=== PATIENT | male | born 1960 | race Caucasian/White ===

== ENCOUNTER 2016-09-11 05:11 | Emergency (ER) | payer OTHER ==
[~2016-09-11] VITALS: Ht 182.9 cm; Wt 97.5 kg
[2016-09-11] MEDS ORDERED: LIDOCAINE 1%/EPI 1:100,000 20 ML VIAL. IJ ONE (06:00)
[2016-09-11 07:22] VITALS: BP 130/71
--- NOTE | 2016-09-11 08:19 | ED.ADGEN ---
Past Medical History Past Medical History: Liver Disease Additional Past Medical Histor: PARACENTESIS Past Surgical History: No Surgical History Alcohol Use: None Additional Information: QUIT ALCOHOL USE Drug Use: None Adult General Chief Complaint Chief Complaint: SKIN PROBLEM HPI HPI Patient is a 56 year old and, history of hepatitis C, with cirrhosis, who received a paracentesis of the abdomen at 4 days ago, who presents to the emergency department with complaint of bleeding from his right cheek. States that he scratched "some dry skin", but 3 hours ago, and noted bleeding since that time that has been persistent. He denies any other injuries or complaints. No lightheadedness or dizziness, chest pain or shortness breath, nausea or vomiting. Patient with gauze applied to the cheek. He states that there was a significant amount of bleeding that has occurred over the past 3 hours. Review of Systems Review of Systems Constitutional: Denies fever or chills. [] Eyes: Denies change in visual acuity. [] HENT: Denies nasal congestion or sore throat. [] Respiratory: Denies cough or shortness of breath. [] Cardiovascular: Denies chest pain or edema. [] GI: Denies abdominal pain, nausea, vomiting, bloody stools or diarrhea. [] : Denies dysuria. [] Musculoskeletal: Denies back pain or joint pain. [] Bleeding from the right cheek. Integument: Denies rash. [] Neurologic: Denies headache, focal weakness or sensory changes. [] Endocrine: Denies polyuria or polydipsia. [] Lymphatic: Denies swollen glands. [] Psychiatric: Denies depression or anxiety. [] Current Medications Current Medications Current Medications Medications (Trade) Dose Ordered Sig/Sallie Start Time Stop Time Status Last Admin Dose Admin Lidocaine/ Epinephrine (Xylocaine 1%-Epi 1:100,000) 20 ml 1X ONCE 09/11/16 06:00 09/11/16 06:01 DC 09/11/16 06:00 20 ML Allergies Allergies Allergies Coded Allergies Type Severity Reaction Last Updated Verified No Known Drug Allergies 09/11/16 No Physical Exam Physical Exam Constitutional: Well developed, well nourished, no acute distress, patient is jaundiced with scleral icterus. [] HENT: Normocephalic, patient noted to have active bleeding, from a single arteriole located on the upper aspect of his right cheek, with steady bleeding. Telangiectasias noted on the skin of the face and abdomen, no other areas of bleeding or other abnormalities identified, bilateral external ears normal, oropharynx moist, no oral exudates, nose normal. [] Eyes: PERRLA, EOMI, conjunctiva anicteric, no discharge. [] Neck: Normal range of motion, no tenderness, supple, no stridor. [] Cardiovascular:Heart rate regular rhythm, no murmur, S1, S2, rubs or gallops. Soft heart sounds. [] Lungs & Thorax: Bilateral breath sounds clear to auscultation , no wheezing, rhonchi, rales. [] Abdomen: Bowel sounds normal, soft, no rebound, rigidity, no guarding, enlarged liver noted, no tenderness, no masses, no pulsatile masses. [] Skin: Warm, dry, no erythema, no rash. Jaundiced. Back: No tenderness, no CVA tenderness. Patient with a 4 cm x 2 cm sebaceous cyst located on his left upper back, which she states isn't present for "months ", if not longer. Patient has had similar strain previously. There is mild irritation of the skin, from contact the patient's close, but no evidence of induration abscess formation. Nontender. [] Extremities: No tenderness, no cyanosis, no clubbing, ROM intact, no edema. [] Neurologic: Alert and oriented X 3, normal motor function, normal sensory function, no focal deficits noted. [] Psychologic: Affect normal, judgement normal, mood normal. [] Current Patient Data Vital Signs Vital Signs Date Time Temp Pulse Resp B/P Pulse Ox O2 Delivery O2 Flow Rate FiO2 09/11/16 07:22 98 18 130/71 99 Room Air 09/11/16 05:15 97.6 97.6 Lab Values Laboratory Tests Test 09/11/16 06:15 POC Hemoglobin 10.9g/dL (14-18) L POC Hematocrit 32% (37-52) L POC Sodium 130mmol/L (135-145) L POC Potassium 4.0mmol/L (3.5-5.0) POC Chloride 94mmol/L (98-110) L POC Total CO2 25mmol/L (23-32) Anion Gap 16mmol/L (6-14) H POC Blood Urea Nitrogen 13mg/dL (8-26) POC Creatinine 1.1mg/dL (0.5-1.4) Glucose Level 108mg/dL (70-99) H POC Ionized Calcium (Citlalli) 1.08mmol/L (1.13-1.32) L Laboratory Tests 09/11/16 06:15 EKG EKG Not indicated. [] Radiology/Procedures Radiology/Procedures Not indicated. [] Course & Med Decision Making Course & Med Decision Making Pertinent Labs and Imaging studies reviewed. (See chart for details) Patient with isolated bleeding from a single arterial noted on the right upper cheek, which is steady in nature. Has been persistent for 3 hours. No other areas of bleeding, bruising, or other concerns. Pressure was applied after injection of 1% lidocaine with epinephrine, after direct pressure from the sides resulted in cessation of the bleeding, which would recur as soon as pressure was removed. No indications for cautery based on the size and area on the face, with pressure applied, patient had several coats of skin glue applied , with resolution of bleeding once hardened. Patient observed in the emergency department for additional 30 minutes without any recurrence of bleeding. Due to persistence of bleeding, hemoglobin was obtained in the ED, which resulted at 10.9. Patient's heart rate is now in the 80s, blood pressure 130/71, he denies any other complaints, ambulating with difficulty in the ED. Nonadherent dressing place and face, patient started not to scratch her of the area, not to get it wet for at least 24 hours. We did discuss concerning symptoms that prompt return. Patient also noted have a large sebaceous cyst in his back with some irritation due to size. Antibiotic ointment, with dressing, no indication for oral antibiotics. No evidence of infection or induration. Patient instructed to follow-up with his surgeon at for removal of the cyst, to return to the ED if any concerning symptoms develop. Patient voiced understanding and agreement with plan as stated, discharged home in stable condition with plan as above. Dragon Disclaimer Dragon Disclaimer This electronic medical record was generated, in whole or in part, using a voice recognition dictation system. Departure Impression: Primary Impression: Telangiectasia Additional Impression: Facial laceration Disposition: HOME, SELF-CARE Condition: IMPROVED Problem Qualifiers Additional Impression: Facial laceration Encounter type: initial encounter Qualified Code: S01.81XA - Laceration without foreign body of other part of head, initial encounter DREA GARCIA DO Sep 11, 2016 08:19
== END 2016-09-11 07:27 | disposition home or self-care (01) ==
LOC: ER 05:11
DX: S01.411A Laceration without foreign body of right cheek and temporomandibular area, initial encounter (principal); I78.1 Nevus, non-neoplastic; L72.8 Other follicular cysts of the skin and subcutaneous tissue; Z86.19 Personal history of other infectious and parasitic diseases; X58.XXXA Exposure to other specified factors, initial encounter; Y93.89 Activity, other specified; Y99.8 Other external cause status; Y92.89 Other specified places as the place of occurrence of the external cause
CPT/HCPCS: 12015; 80047; 99283; J3490

== ENCOUNTER 2016-09-17 11:57 | Inpatient (IN) | payer MEDICARE, OTHER ==
[~2016-09-17] VITALS: Ht 188 cm; Wt 86.6 kg
[2016-09-17] VITALS (12 sets, daily range): BP systolic 114–162; BP diastolic 64–87
--- NOTE | 2016-09-17 12:24 | ED.ADGEN ---
Past Medical History Past Medical History: Liver Disease Additional Past Medical Histor: PARACENTESIS Past Surgical History: No Surgical History Alcohol Use: None Drug Use: None Adult General Chief Complaint Chief Complaint: ALTERED MENTAL STATUS HPI HPI Patient is a 56 year old man, history of alcohol abuse, with liver disease, who presents emergency department via EMS with report of altered mental status. Per report of the patient's and EMS, patient was noted to be lying on the couch today by the patient's , and she was unable to rouse him. She states the patient stopped drinking about a month ago. Denies any seizure activity, denies any possibility of injuries. Family is not present to give additional history. Patient with an O2 sat of 97% on room air, heart rate of 111, blood pressure 127/68, patient will occasionally open eyes spontaneously, and will respond to painful stimulation, but is not answering questions. GCS of 8. Review of Systems Review of Systems Unable to obtain secondary to patient's clinical condition. Allergies Allergies Allergies Coded Allergies Type Severity Reaction Last Updated Verified No Known Drug Allergies 09/17/16 No Physical Exam Physical Exam Constitutional: Well developed, well nourished, icteric and jaundiced,. [] HENT: Normocephalic, atraumatic, has discoloration on the right upper cheek which is reportedly old per family, bilateral external ears normal, oropharynx moist, no oral exudates, nose normal. [] Eyes: PERRLA, EOMI, conjunctiva normal, no discharge. [] Neck: Normal range of motion, no tenderness, supple, no stridor. [] Cardiovascular:Heart rate regular rhythm, no murmur [] Lungs & Thorax: Coarse breath sounds noted bilaterally, no wheezing. No chest wall crepitus. [] Abdomen: Bowel sounds normal, abdomen is enlarged liver palpated, soft, no tenderness, no masses, no pulsatile masses. [] Skin: Warm, dry, no erythema, no rash. Patient is jaundiced, noted to have an area of ecchymosis along the right hip, which may be from pressure. Back: No tenderness, no CVA tenderness. [] Extremities: No tenderness, no cyanosis, no clubbing, ROM intact, no edema. [] Neurologic: Patient will open eyes to physical stimulus, localizes to pain, bite against the stick when I attempt to test gag reflex, gag is intact, opens eyes without simulation as well, noted to have some bleeding of the mucosa with an area of irritation and abrasion noted on the left tongue, but no significant bleeding, or lacerations, is moving extremities. GCS of 8-9. [] Psychologic: Affect normal, judgement normal, mood normal. [] Current Patient Data Vital Signs Vital Signs Date Time Temp Pulse Resp B/P Pulse Ox O2 Delivery O2 Flow Rate FiO2 09/17/16 13:10 114 12 147/68 94 Room Air 09/17/16 12:10 97.4 97.4 Lab Values Laboratory Tests Test 09/17/16 12:30 White Blood Count 10.9x10^3/uL (4.0-11.0) Red Blood Count 2.86x10^6/uL (4.30-5.70) L Hemoglobin 9.7g/dL (13.0-17.5) L Hematocrit 28.3% (39.0-53.0) L Mean Corpuscular Volume 99fL (79-100) Mean Corpuscular Hemoglobin 34pg (25-35) Mean Corpuscular Hemoglobin Concent 34g/dL (31-37) Red Cell Distribution Width 14.5% (11.5-14.5) Platelet Count 152x10^3/uL (140-400) Neutrophils (%) (Auto) 84% (31-73) H Lymphocytes (%) (Auto) 11% (24-48) L Monocytes (%) (Auto) 5% (0-9) Eosinophils (%) (Auto) 0% (0-3) Basophils (%) (Auto) 0% (0-3) Neutrophils # (Auto) 9.2x10^3uL (1.8-7.7) H Lymphocytes # (Auto) 1.2x10^3/uL (1.0-4.8) Monocytes # (Auto) 0.6x10^3/uL (0.0-1.1) Eosinophils # (Auto) 0.0x10^3/uL (0.0-0.7) Basophils # (Auto) 0.0x10^3/uL (0.0-0.2) Prothrombin Time 21.2SEC (11.7-14.0) H Prothrombin Time INR 2.0 (0.8-1.1) H PTT 42SEC (24-38) H Urine Collection Type U cath Urine Color Yellow Urine Clarity Clear Urine pH 7.0 Urine Specific [place] 1.015 Urine Protein Negativemg/dL (NEG-TRACE) Urine Glucose (UA) Negativemg/dL (NEG) Urine Ketones (Stick) Negativemg/dL (NEG) Urine Blood Small (NEG) Urine Nitrite Negative (NEG) Urine Bilirubin Negative (NEG) Urine Urobilinogen Dipstick 1.0mg/dL (0.2 mg/dL) Urine Leukocyte Esterase Negative (NEG) Urine RBC 11-20/HPF (0-2) Urine WBC 0/HPF (0-4) Urine Transitional Epithelial Cells Few/LPF Urine Bacteria 0/HPF (0-FEW) Urine Hyaline Casts Many/HPF Urine Mucus Slight/LPF Sodium Level 135mmol/L (136-145) L Potassium Level 4.1mmol/L (3.5-5.1) Chloride Level 98mmol/L (98-107) Carbon Dioxide Level 25mmol/L (21-32) Anion Gap 12 (6-14) Blood Urea Nitrogen 23mg/dL (8-26) Creatinine 1.3mg/dL (0.7-1.3) Estimated GFR (Cockcroft-Gault) 56.9 BUN/Creatinine Ratio 18 (6-20) Glucose Level 126mg/dL (70-99) H Lactic Acid Level 4.6mmol/L (0.4-2.0) *H Calcium Level 8.6mg/dL (8.5-10.1) Phosphorus Level 3.7mg/dL (2.6-4.7) Magnesium Level 2.0mg/dL (1.8-2.4) Total Bilirubin 3.8mg/dL (0.2-1.0) H Aspartate Amino Transferase (AST) 73U/L (15-37) H Alanine Aminotransferase (ALT) 31U/L (16-63) Alkaline Phosphatase 157U/L (46-116) H Ammonia 249mcmol/L (11-34) H Troponin I Quantitative < 0.017ng/mL (0.000-0.055) XK-Gua-Z-Type Natriuretic Peptide 93pg/mL (0-124) Total Protein 7.9g/dL (6.4-8.2) Albumin 2.3g/dL (3.4-5.0) L Albumin/Globulin Ratio 0.4 (1.0-1.7) L Urine Opiates Screen Neg (NEG) Urine Methadone Screen Neg (NEG) Urine Barbiturates Neg (NEG) Urine Phencyclidine Screen Neg (NEG) Urine Amphetamine/Methamphetamine Neg (NEG) Urine Benzodiazepines Screen Neg (NEG) Urine Cocaine Screen Neg (NEG) Urine Cannabinoids Screen Neg (NEG) Urine Ethyl Alcohol Neg (NEG) Laboratory Tests 09/17/16 12:30 Laboratory Tests 09/17/16 12:30 EKG EKG EC: Sinus tachycardia, heart rate 113 bpm, incomplete right bundle- branch block noted, contour abnormalities noted in the inferior leads, mild baseline artifact noted, QTc of 489, MD 112, QRS of 112, abnormal ECG, does not meet STEMI criteria. As interpreted by me. [] Radiology/Procedures Radiology/Procedures [] [address] [id number] IMAGING REPORT Signed PATIENT: ARTEMIO TYSON ACCOUNT: [id number] : 1960 LOCATION: [address] [place] [address] AGE: 56 SEX: M EXAM STATUS: ADM IN ORD. PHYSICIAN: DREA GARCIA DO REASON: OG tube PROCEDURE: KUB Portable abdomen, 09/17/2016: History: Check NG tube placement A supine view of the upper abdomen demonstrates an NG tube extending into the proximal body of the stomach. The gas pattern in the upper abdomen is unremarkable. IMPRESSION: The NG tube extends into the proximal aspect of the stomach. DICTATED and SIGNED BY: SANTANA CRUZ MD DATE: 09/17/16 1535 CC: DREA GARCIA DO; UNKNOWN PCP NAME ~ Impressions: [address] [id number] IMAGING REPORT Signed PATIENT: ARTEMIO TYSON ACCOUNT: [id number] : 1960 LOCATION: ER AGE: 56 SEX: M EXAM STATUS: PRE ER ORD. PHYSICIAN: DREA GARCIA DO REASON: AMS PROCEDURE: HEAD WO CONTRAST EXAM: CT head without contrast. HISTORY: Altered mental status. TECHNIQUE: Computed tomography of the head was performed without intravenous contrast. COMPARISON: None. FINDINGS: There is no intracranial hemorrhage. Mild hypoattenuation within the periventricular white matter indicates mild chronic small vessel ischemic change. The ventricles are normal in size and position. The visualized paranasal sinuses appear clear. The orbits are unremarkable. The temporal bones are unremarkable. The calvarium reveals no suspicious lesions. The focus of skin thickening is seen along the lateral aspect of the right orbit. IMPRESSION: 1. No acute intracranial findings. 2. Mild chronic small vessel ischemic white matter change. 3. Correlate for a skin lesion along the lateral aspect of the right orbit. *One or more of the following individualized dose reduction techniques were utilized for this examination: 1. Automated exposure control. 2. Adjustment of the mA and/or kV according to patient size. 3. Use of iterative reconstruction technique. DICTATED and SIGNED BY: TANA FELIX MD DATE: 09/17/16 1242 CC: DREA GARCIA DO; UNKNOWN PCP NAME ~ [facility] [address] [place], [place] [id number] IMAGING REPORT Signed PATIENT: ARTEMIO TYSON ACCOUNT: [id number] : 1960 LOCATION: [facility] ICU AGE: 56 SEX: M EXAM STATUS: ADM IN ORD. PHYSICIAN: DREA GARCIA DO REASON: postintubation and OG tube placement PROCEDURE: CHEST AP ONLY Portable chest, 09/17/2016, 3:14 PM: History: Check tube placements Comparison is made to a study of earlier the same day. An ET tube has been inserted with its tip located 5 to 6 cm above the christine. An NG tube extends into the stomach. The heart size and pulmonary vascularity are normal. There is increasing linear atelectasis in the left base. The right chest is clear. There is no evidence of pleural fluid. IMPRESSION: 1. The ET tube and NG tube are in satisfactory positions. 2. Increasing left basilar linear atelectasis. DICTATED and SIGNED BY: SANTANA CRUZ MD DATE: 09/17/16 1536 CC: DREA GARCIA DO; UNKNOWN PCP NAME ~ Course & Med Decision Making Course & Med Decision Making Pertinent Labs and Imaging studies reviewed. (See chart for details) Patient maintaining airway upon arrival to the ED, oxygen saturation is 92-97% on room air, heart rate mildly tachycardic. Laboratory studies obtained along with CT imaging of the head, head is normal, laboratory studies reveal an ammonia of 249. Patient's family is now present, at bedside. I had a lengthy discussion with her regarding the patient's history, at this point the patient has plans to begin treatment for hep C, he has been sober for 1 month, he is not taking any medications for ammonia or for GI issues at this time. He has previously refused a transplant of the liver. I did discuss with the patient 's and family at bedside that the patient is a terminal condition at this point, and if he is not accepting of treatment and he has no plans to proceed to transplant, that there'll be limited options that we can offer for the patient. This was a the lengthy conversation at bedside. Patient's states that she is upset over this information, but wishes for the patient to be intubated to arrange for administration of lactulose to see if his mental condition will improve. I did speak with Clover, nurse practitioner for Dr. Pagan, his recommendation is that lactulose be administered 30 g through the OG tube every 2 hours. Will follow the patient in the ICU. Consent paperwork was signed by patient's due to his coordination, intubation was performed without complication. Patient was placed on ventilator without issue, I did speak with Dr. Bloom of pulmonary critical care, regarding management of patient in the ICU. Findings as above discussed with Dr. Espinosa of internal medicine, patient accepted to her service as a full admission to the ICU with consultations and plan as above, bridge orders and entered per her request. Dragon Disclaimer Dragon Disclaimer This electronic medical record was generated, in whole or in part, using a voice recognition dictation system. Critical Care Time Critical care time was 30 minutes exclusive of procedures. Intubation Procedure Intubation Procedure Intub Indication: Altered mental status, intubation for airway protection Consent: Unable to give consent due to emergent nature. Medications Used: see nursing note Procedure: The patient was placed in the appropriate position. Patient was noted to have some oozing in the mouth from the tongue abrasions, Intubation was performed using video visualization of the cords, 7.5 mm endotracheal tube was passed, with first pass success. Initial confirmation of placement included bilateral breath sounds, tube fogging, adequate chest rise, adequate pulse oximetry reading and end-tidal CO2 color change. And OG tube was then placed without issue. A chest x-ray to verify correct placement of the ET and OG tubes showed appropriate tube position. The patient tolerated the procedure well. Complications: none. Departure Impression: Primary Impression: Mental status change Additional Impressions: Hyperammonemia End stage liver disease Disposition: ADMITTED INPATIENT Admitting Physician: Other Condition: IMPROVED Problem Qualifiers DREA GARCIA DO Sep 17, 2016 12:24
[2016-09-17 12:40] LABS: BILIRUBIN,URINE NEGATIVE (NEG); GLUCOSE,URINE NEGATIVE (NEG); NITRITE,URINE NEGATIVE (NEG); PROTEIN,URINE NEGATIVE (NEG-TRACE)
[2016-09-17 12:43] LABS: BASO % 0 % (0-3); EOS % 0 % (0-3); HEMATOCRIT 28.3 % (39.0-53.0); HEMOGLOBIN 9.7 g/dL (13.0-17.5); LYMPH # 1.2 x10^3/uL (1.0-4.8); LYMPH % 11 % (24-48); MEAN CORPUSCULAR HEMOGLOBIN 34 pg (25-35); MEAN CORPUSCULAR HGB CONC 34 g/dL (31-37); MEAN CORPUSCULAR VOLUME 99 fL (79-100); MONO % 5 % (0-9); NEUT % 84 % (31-73); PLATELET COUNT 152 x10^3/uL (140-400); RED BLOOD COUNT 2.86 x10^6/uL (4.30-5.70); RED CELL DISTRIBUTION WIDTH 14.5 % (11.5-14.5); WHITE BLOOD COUNT 10.9 x10^3/uL (4.0-11.0)
--- NOTE | 2016-09-17 12:45 | EKG ---
[facility] [address] [place] [address] Test Date: 2016-09-17 Test Time: 12:35:35 Pat Name: ARTEMIO TYSON Department: Room: Gender: M [employer]: : 1960 Requested By: DREA GARCIA Order Number: [id number] Reading MD: Saira Reynoso Measurements Intervals [place] Rate: 113 P: -49 IN: 112 QRS: 15 QRSD: 112 T: -10 QT: 352 QTc: 489 Interpretive Statements SINUS TACHYCARDIA INCOMPLETE RIGHT BUNDLE BRANCH BLOCK QRS(T) CONTOUR ABNORMALITY CONSIDER ANTEROLATERAL MYOCARDIAL DAMAGE AGE UNDETERMINED ABNORMAL ECG RI6.01 No previous ECG available for comparison Electronically Signed On 09-19-2016 20:19:20 MODEL AND PATTERN SUPERVISOR by Saira Reynoso
--- NOTE | 2016-09-17 12:47 | RAD ---
EXAM: CT head without contrast. HISTORY: Altered mental status. TECHNIQUE: Computed tomography of the head was performed without intravenous contrast. COMPARISON: None. FINDINGS: There is no intracranial hemorrhage. Mild hypoattenuation within the periventricular white matter indicates mild chronic small vessel ischemic change. The ventricles are normal in size and position. The visualized paranasal sinuses appear clear. The orbits are unremarkable. The temporal bones are unremarkable. The calvarium reveals no suspicious lesions. The focus of skin thickening is seen along the lateral aspect of the right orbit. IMPRESSION: 1. No acute intracranial findings. 2. Mild chronic small vessel ischemic white matter change. 3. Correlate for a skin lesion along the lateral aspect of the right orbit. *One or more of the following individualized dose reduction techniques were utilized for this examination: 1. Automated exposure control. 2. Adjustment of the mA and/or kV according to patient size. 3. Use of iterative reconstruction technique.
[2016-09-17 12:48] LABS: BARBITURATES NEG (NEG); BENZODIAZEPINES NEG (NEG); CANNABINOIDS NEG (NEG); COCAINE NEG (NEG); METHADONE NEG (NEG); OPIATES NEG (NEG); PHENCYCLIDINE NEG (NEG)
[2016-09-17 12:49] LABS: BACTERIA,URINE 0 /HPF (0-FEW); WBC,URINE 0 /HPF (0-4)
[2016-09-17 12:52] LABS: CALCIUM 8.6 mg/dL (8.5-10.1); CREATININE 1.3 mg/dL (0.7-1.3); GFR 56.9; POTASSIUM 4.1 mmol/L (3.5-5.1); PROTHROMBIN TIME PATIENT 21.2 SEC (11.7-14.0)
[2016-09-17 12:53] LABS: ETHANOL, URINE NEG (NEG)
[2016-09-17 12:58] LABS: ALBUMIN 2.3 g/dL (3.4-5.0); ALBUMIN/GLOBULIN RATIO 0.4 (1.0-1.7); TOTAL BILIRUBIN 3.8 mg/dL (0.2-1.0); TOTAL PROTEIN 7.9 g/dL (6.4-8.2)
[2016-09-17] MEDS ORDERED: IV NORMAL SALINE 1000ML BAG 1,000 ML IV ONE ×3 (13:30→18:15)
[2016-09-17 13:59] LABS: PHOSPHORUS 3.7 mg/dL (2.6-4.7)
[2016-09-17] MEDS ORDERED: FENTANYL PF 100 MCG/2 ML VIAL. IV PRN ×2 (14:15)
[2016-09-17] MEDS ORDERED: MORPHINE SULFATE 4 MG/ML DISP.SYRIN. IV PRN (14:15)
[2016-09-17] MEDS: PROPOFOL 100 ML IV PRN ×2 (14:36→20:58)
--- NOTE | 2016-09-17 15:37 | RAD ---
Portable abdomen, 09/17/2016: History: Check NG tube placement A supine view of the upper abdomen demonstrates an NG tube extending into the proximal body of the stomach. The gas pattern in the upper abdomen is unremarkable. IMPRESSION: The NG tube extends into the proximal aspect of the stomach.
--- NOTE | 2016-09-17 15:40 | RAD ---
Portable chest, 09/17/2016, 3:14 PM: History: Check tube placements Comparison is made to a study of earlier the same day. An ET tube has been inserted with its tip located 5 to 6 cm above the christine. An NG tube extends into the stomach. The heart size and pulmonary vascularity are normal. There is increasing linear atelectasis in the left base. The right chest is clear. There is no evidence of pleural fluid. IMPRESSION: 1. The ET tube and NG tube are in satisfactory positions. 2. Increasing left basilar linear atelectasis.
--- NOTE | 2016-09-17 15:49 | PDOC2 ---
GI CONSULT Reason For Consult: Hyperammonemia HPI: HPI: History from chart, staff. D/w Dr. Espinoza via phone earlier re: elevated ammonia. Per Dr. Pagan, recommended lactulose enemas 240cc w/ water Q 4 hrs or 30cc via NG/OG Q 2 hrs. 56 y/o male brought to ER by family for AMS. Continued to decline in ER, FOIL WRAPPER states he did respond when catheter was placed but otherwise became non- responsive. Now intubated and sedated in ICU. H/o ESLD, ascites, Hep C, and alcoholism. Normally follows at , has had repeat paracentesis (most recently last week). Sober x 1 month, has mostly been "sitting on the couch" in his normal state of health until this morning when noted to be unsteady. No n/v, hematemesis, diarrhea, abd pain, hematochezia, melena. Labs: WBC 10.9, Hgb 9.7 , INR 2, bili 3.8, AST 73, Alk Phos 157, ammonia 249, lactic acid 4.6, tox screen neg. Dried red material noted around mouth by FOIL WRAPPER, NG placed w/ output of "half a cup" of dark reddish material w/ some recurrence now in ICU. Tachycardia noted, BP 160s currently. PMH: PMH: ESLD, ascites, Hep C, alcoholism Social History: ALCOHOL: heavy ROS: Unobtainable. VItals: Vitals: Vital Signs Date Time Temp Pulse Resp B/P Pulse Ox O2 Delivery O2 Flow Rate FiO2 09/17/16 15:00 116 18 164/77 100 Ventilator 09/17/16 12:10 97.4 97.4 Labs: Labs: Laboratory Tests Test 09/17/16 12:30 White Blood Count 10.9x10^3/uL (4.0-11.0) Red Blood Count 2.86x10^6/uL (4.30-5.70) Hemoglobin 9.7g/dL (13.0-17.5) Hematocrit 28.3% (39.0-53.0) Mean Corpuscular Volume 99fL (79-100) Mean Corpuscular Hemoglobin 34pg (25-35) Mean Corpuscular Hemoglobin Concent 34g/dL (31-37) Red Cell Distribution Width 14.5% (11.5-14.5) Platelet Count 152x10^3/uL (140-400) Neutrophils (%) (Auto) 84% (31-73) Lymphocytes (%) (Auto) 11% (24-48) Monocytes (%) (Auto) 5% (0-9) Eosinophils (%) (Auto) 0% (0-3) Basophils (%) (Auto) 0% (0-3) Neutrophils # (Auto) 9.2x10^3uL (1.8-7.7) Lymphocytes # (Auto) 1.2x10^3/uL (1.0-4.8) Monocytes # (Auto) 0.6x10^3/uL (0.0-1.1) Eosinophils # (Auto) 0.0x10^3/uL (0.0-0.7) Basophils # (Auto) 0.0x10^3/uL (0.0-0.2) Prothrombin Time 21.2SEC (11.7-14.0) Prothromb Time International Ratio 2.0 (0.8-1.1) Activated Partial Thromboplast Time 42SEC (24-38) Urine Collection Type U cath Urine Color Yellow Urine Clarity Clear Urine pH 7.0 Urine Specific [place] 1.015 Urine Protein Negativemg/dL (NEG-TRACE) Urine Glucose (UA) Negativemg/dL (NEG) Urine Ketones (Stick) Negativemg/dL (NEG) Urine Blood Small (NEG) Urine Nitrite Negative (NEG) Urine Bilirubin Negative (NEG) Urine Urobilinogen Dipstick 1.0mg/dL (0.2 mg/dL) Urine Leukocyte Esterase Negative (NEG) Urine RBC 11-20/HPF (0-2) Urine WBC 0/HPF (0-4) Urine Transitional Epithelial Cells Few/LPF Urine Bacteria 0/HPF (0-FEW) Urine Hyaline Casts Many/HPF Urine Mucus Slight/LPF Sodium Level 135mmol/L (136-145) Potassium Level 4.1mmol/L (3.5-5.1) Chloride Level 98mmol/L (98-107) Carbon Dioxide Level 25mmol/L (21-32) Anion Gap 12 (6-14) Blood Urea Nitrogen 23mg/dL (8-26) Creatinine 1.3mg/dL (0.7-1.3) Estimated GFR (Cockcroft-Gault) 56.9 BUN/Creatinine Ratio 18 (6-20) Glucose Level 126mg/dL (70-99) Lactic Acid Level 4.6mmol/L (0.4-2.0) Calcium Level 8.6mg/dL (8.5-10.1) Phosphorus Level 3.7mg/dL (2.6-4.7) Magnesium Level 2.0mg/dL (1.8-2.4) Total Bilirubin 3.8mg/dL (0.2-1.0) Aspartate Amino Transf (AST/SGOT) 73U/L (15-37) Alanine Aminotransferase (ALT/SGPT) 31U/L (16-63) Alkaline Phosphatase 157U/L (46-116) Ammonia 249mcmol/L (11-34) Troponin I Quantitative < 0.017ng/mL (0.000-0.055) SQ-Nld-J-Type Natriuretic Peptide 93pg/mL (0-124) Total Protein 7.9g/dL (6.4-8.2) Albumin 2.3g/dL (3.4-5.0) Albumin/Globulin Ratio 0.4 (1.0-1.7) Urine Opiates Screen Neg (NEG) Urine Methadone Screen Neg (NEG) Urine Barbiturates Neg (NEG) Urine Phencyclidine Screen Neg (NEG) Urine Amphetamine/Methamphetamine Neg (NEG) Urine Benzodiazepines Screen Neg (NEG) Urine Cocaine Screen Neg (NEG) Urine Cannabinoids Screen Neg (NEG) Urine Ethyl Alcohol Neg (NEG) Allergies: Coded Allergies: No Known Drug Allergies (Unverified , 09/17/16) Medications: Current Medications Medications (Trade) Dose Ordered Sig/Sallie Route PRN Reason Start Time Stop Time Status Last Admin Dose Admin Sodium Chloride 1,000 ml @ 100 mls/hr 1X ONCE IV 09/17/16 13:30 09/17/16 23:29 09/17/16 13:30 Propofol (Diprivan) 100 ml @ 0 mls/hr CONT PRN IV PER PROTOCOL 09/17/16 14:15 09/17/16 14:36 Imaging: Imaging: Head CT 09/17/16 IMPRESSION: 1. No acute intracranial findings. 2. Mild chronic small vessel ischemic white matter change. 3. Correlate for a skin lesion along the lateral aspect of the right orbit. CXRs 09/17/16 PENDING KUB 09/17/16 IMPRESSION: The NG tube extends into the proximal aspect of the stomach. PE: GEN: intubated HEENT: Atraumatic LUNGS: vent HEART: tachycardic ABD: S/ND/NT, OG w/ dark brownish reddish contents EXTREMITY: No edema NEURO/PSYCH: sedated A/P: A/P: ESLD, AMS, hyperammonemia, lactic acidosis -h/o ascites w/ previous paracentesis at , Hep C, alcoholism (sober 1 month) -intubated and sedated in ICU -OG w/ reddish/brownish output (per RN - not much in ER, noted again in ICU when placed to suction) -- Lactulose via OG or as enemas. Will review OG output w/ Dr. Pagan. MIKO ORR Sep 17, 2016 15:48
[2016-09-17 16:11] LABS: HCO3 ABG 23 mmol/L (21-28); PCO2 ABG 31 mmHg (35-46); PH ABG 7.49 (7.35-7.45); PO2 ABG 350 mmHg (75-108); SAT O2 ABG 100 % (92-99)
--- NOTE | 2016-09-17 16:43 | RAD ---
Portable chest, 09/17/2016: History: Altered mental status The heart size and pulmonary vascularity are normal. There is mild linear scarring or atelectasis in the left base. The lungs are otherwise clear. There is no evidence of pleural fluid. Moderate spurring is present in the spine. IMPRESSION: Mild left basilar linear atelectasis or scarring.
[2016-09-17] MEDS ORDERED: SUCCINYLCHOLINE 200 MG/10 ML VIAL. ONE (17:27)
[2016-09-17] MEDS ORDERED: ETOMIDATE 20 MG/10 ML VIAL. IV ONE (17:27)
[2016-09-17] MEDS: LACTULOSE 20 GM/30 ML SOLUTION. NG SCH ×4 (17:56→22:26)
[2016-09-17] MEDS ORDERED: IV NORMAL SALINE 500ML BAG 500 ML IV ONE (18:15)
[2016-09-17] MEDS: CHLORHEXIDINE 0.12% 15 ML MOUTHWASH. MM SCH (20:58)
--- NOTE | 2016-09-17 21:01 | ACF ---
Admission Forms Criteria MENTAL STATUS CHANGE Clinical Indications for Inpatient Care (Place 'X' for any and all applicable criteria): Ongoing inpatient care may be needed for ANY ONE of the following(1)(2)(3)(5)(6) : [X]I. Suspected serious etiology (eg, medical disorder, RN LONG TERM CARE event) of mental status change [ ]II. Danger to self or others not manageable at lower level of care [ ]III. Grave disability (eg, inability to perform self care necessary at lower level of care) [ ]IV. Agitation or inappropriate behavior interfering with care for primary condition (eg, attempting to discontinue lines or drains prematurely, unable to cooperate with respiratory care) [ ]V. Delirium [A] [D][E] as described by ANY ONE of the following(26): [ ]a) Delirium due to alcohol or sedative [F] withdrawal [ ]b) Delirium of uncertain etiology that has not responded to appropriate empiric treatment [ ]c) Delirium that prevents performance of a life-sustaining function (eg, feeding or hydrating oneself) [ ]. General contraindications and/or Inappropriate clinical situations for Observational Care in patients with Mental Status Change, when ANY ONE of the following is required: [ ]a) Prediction of prolongation of LOS based on ANY ONE of the following may be considered as a contraindication for observational care 2, 3, 4, 5, 6, 7, 8, 9, 10, 11 [ ]i) Age > 65 yrs. [ ]ii) Patient arriving by ambulance [ ]iii) Patient with high acuity [ ]iv) Patient requiring vital sign monitoring [ ]v) Patient on IV medication [ ]b) Systolic blood pressures 180mmHg 3,12 [ ]c) Patient with altered mental status including delirium and other alteration of consciousness, (3) [ ]d) Patient whose discharge disposition will be to a alf home or rehabilitation home should not be managed in Emergency Department Observation Unit. CMS rule requires 3 days hospital stay before such placement.3,13 [ ]e) Patient with failure to thrive due to broad array of etiologies 3,16,17 [ ]f) Inability to ambulate 3,14 Extended stay beyond goal length of stay for the primary condition may be needed until ALL of the following are present(3)(5): [ ]a) Underlying medical etiology of mental status change is absent, or has been established and adequately treated [ ]b) Danger to self or others is absent or manageable at lower level of care. [ ]c) Behavior crisis management, including physical or chemical restraints, is not required or available at lower level of car [ ]d) Substance or alcohol withdrawal is absent or manageable at lower level of care. [ ]e) Behavioral symptoms (eg, agitation, somnolence, inappropriate behavior) are absent, or are manageable at lower level of care. The [facility] content created by [facility] has been revised. The portions of the content which have been revised are identified through the use of italic text or in bold, and [facility] has neither reviewed nor approved the modified material. All other unmodified content is copyright [facility]. Please see references footnoted in the original [facility] edition 2016 Admission Criteria Met?: Yes NOEMI VILLEGAS Sep 17, 2016 21:00
[2016-09-17 21:48] LABS: FIO2 ABG 100
--- NOTE | 2016-09-17 22:53 | HP ---
ADMIT DATE: 09/17/2016 CHIEF COMPLAINT: Mental status changes, hepatic encephalopathy. HISTORY OF PRESENT ILLNESS: The patient is a 56-year-old gentleman with severe hep C and alcoholic cirrhosis who typically is followed by [facility] which was on diversion today, hence came presenting here today. His cirrhosis is apparently severe. He has had multiple paracenteses, the most recent one about 2 weeks ago with 4.9 liters tapped. He actually stopped drinking in July when he was told that no treatment for his hep C would be possible as long as he was drinking. He presented to the Emergency Room via EMS after noticed worsening loss of consciousness and response. She relates this actually has been going on for several days, but was severe today with him being essentially unresponsive, only grunting to questions. She denies any subjective fevers or chills with him at home. Denies any other symptoms that she had noticed. In the Emergency Room, he was found with elevated lactate as well as an ammonia level of 249. Transaminases actually minimally elevated, but liver function including bilirubin and INR significantly up. Because of increasing obtundation, he was intubated for airway protection. He is now in the ICU. PAST MEDICAL HISTORY: Cirrhosis, both hepatitis C and alcohol abuse. FAMILY HISTORY: Noncontributory. SOCIAL HISTORY: , living with his , severe alcohol abuse until July of this year. ALLERGIES: No known drug allergies. MEDICATIONS: No home medications listed. REVIEW OF SYSTEMS: Unable to obtain with intubation. PHYSICAL EXAMINATION: VITAL SIGNS: From today shows a blood pressure of 146/77, heart rate of 113, respiratory rate at 18. GENERAL: This is an ill-appearing unkempt 56-year-old gentleman appearing older than his stated age, sedated, intubated. NECK: Supple. CHEST: Lungs are clear anteriorly. CARDIOVASCULAR: Tachycardic. ABDOMEN: Soft, no hepatosplenomegaly apparent. EXTREMITIES: Show no edema. SKIN: Warm, soft and dry. LABORATORY DATA: CBC with a WBC of 10.9, hemoglobin 9.7, MCV of 99, platelets at 152. Chemistries with a BUN and creatinine of 23 and 1.3, essentially normal electrolytes, bilirubin of 3.8, AST and ALT of 73 and 31, alkaline phosphatase at 157, lactulose 249, albumin 2.3. INR of 2.0, PTT of 42. Tox screen was negative. IMAGING STUDIES: CT of the head shows no acute intracranial findings. Mild chronic small vessel ischemic white matter changes noted. Chest x-ray shows mild left basilar linear atelectasis or scarring. KUB with an NG tube into the stomach. No other findings. Normal gas pattern. 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 His numbers are somewhat ominous. I suspect that his liver function is actually minimal, although transaminases are relatively preserved. I discussed this with his who is not surprised. She states that she knows that her did not want to be intubated, but she overwrote his wishes out of panic earlier in the Emergency Room. She wants her family to get together to make further decisions and is open to terminal extubation. Lactulose seems somewhat elevated. Question of SBP versus liver-related changes. This essentially triggered sepsis protocol, although blood pressure currently is perfectly preserved. He will receive additional fluids for monitoring. We will see tachycardia further as well. Further discussions will be held with family later on. TIARA CHISHOLM MD DR: SAGRARIO/nts JOB#: [id number] / [id number] ROSA
[2016-09-18] VITALS (13 sets, daily range): BP systolic 83–126; BP diastolic 48–89
[2016-09-18] MEDS: LACTULOSE 20 GM/30 ML SOLUTION. NG SCH ×10 (01:16→17:43)
[2016-09-18] MEDS: PROPOFOL 100 ML IV PRN (03:08)
[2016-09-18] MEDS: MORPHINE SULFATE 2 MG/ML DISP.SYRIN. IV PRN ×2 (04:13→04:24)
[2016-09-18] MEDS ORDERED: LABETALOL 20 MG/4 ML DISP.SYRIN. IVP PRN (04:45)
[2016-09-18 06:11] LABS: CALCIUM 8.7 mg/dL (8.5-10.1); CREATININE 1.2 mg/dL (0.7-1.3); GFR 62.4; POTASSIUM 3.8 mmol/L (3.5-5.1)
[2016-09-18 06:14] LABS: BASO # 0.1 x10^3/uL (0.0-0.2); BASO % 1 % (0-3); EOS % 0 % (0-3); HEMATOCRIT 27.6 % (39.0-53.0); HEMOGLOBIN 9.1 g/dL (13.0-17.5); LYMPH # 1.1 x10^3/uL (1.0-4.8); LYMPH % 6 % (24-48); MEAN CORPUSCULAR HEMOGLOBIN 34 pg (25-35); MEAN CORPUSCULAR HGB CONC 33 g/dL (31-37); MEAN CORPUSCULAR VOLUME 102 fL (79-100); MONO % 4 % (0-9); NEUT % 89 % (31-73); PLATELET COUNT 162 x10^3/uL (140-400); RED BLOOD COUNT 2.72 x10^6/uL (4.30-5.70); RED CELL DISTRIBUTION WIDTH 14.6 % (11.5-14.5); WHITE BLOOD COUNT 18.3 x10^3/uL (4.0-11.0)
--- NOTE | 2016-09-18 08:05 | RAD ---
Portable chest, 09/18/2016: History: Respiratory failure Comparison is made to yesterday's study. The exam is suboptimal with moderate patient rotation and a suboptimal depth of inspiration. An NG tube extends into the stomach. The ET tube has its tip located well above the christine. The heart size is normal. The pulmonary vascularity is at the upper limits of normal. A right basilar opacity has developed suggesting atelectasis/infiltrate. There is obscuration of the right lower costophrenic angle. A small amount of right pleural fluid cannot be excluded. IMPRESSION: 1. The ET tube and NG tube are in satisfactory positions. 2. Moderate right basilar atelectasis/infiltrate has developed.
[2016-09-18 08:30] LABS: HCO3 ABG 23 mmol/L (21-28); PCO2 ABG 30 mmHg (35-46); PO2 ABG 56 mmHg (75-108); SAT O2 ABG 88 % (92-99)
[2016-09-18 08:34] LABS: FIO2 ABG 50
[2016-09-18] MEDS: LORAZEPAM 2 MG/ML VIAL IV PRN ×5 (08:39→12:20)
[2016-09-18] MEDS: CHLORHEXIDINE 0.12% 15 ML MOUTHWASH. MM SCH (09:00)
[2016-09-18 09:28] LABS: PLT ESTIMATE ADEQUATE (ADEQUATE)
[2016-09-18] MEDS ORDERED: FENTANYL PF 100 MCG/2 ML VIAL. IV ONE (10:45)
--- NOTE | 2016-09-18 10:55 | PDOC ---
Provider Note Provider Note proceed with terminal weaning per family request BRICE CARABALLO MD Sep 18, 2016 10:54
[2016-09-18] MEDS: FENTANYL STANDARD PCA 30 ML IV PRN ×2 (11:05→15:38)
--- NOTE | 2016-09-18 11:35 | CONS ---
DATE OF CONSULTATION: ATTENDING PHYSICIAN: Dr. Aldridge. REASON FOR CONSULTATION: Respiratory failure, end-stage liver disease. HISTORY OF PRESENT ILLNESS: The patient is a 56-year-old male with history of severe hep C and alcoholic cirrhosis. The patient presented to the Emergency Room after he became progressively lethargic and became nonresponsive. He was intubated in the ER due to worsening encephalopathy. He has ascites and recently had paracentesis. He normally follows at . The patient has advanced directives already. He never wanted to be on life support. He also had declined evaluation for liver transplantation in the past. At that time in the ER, the family was not so sure, so they just proceeded with intubation. His ammonia level was markedly high and it was 249. Lactic acid was 4.6. His toxicology screen was negative. His INR was high and bilirubin was 3.8. The patient's chest x-ray was reviewed post-intubation and it shows development of a right basilar infiltrate and possible congestive heart failure. His arterial blood gases later showed a pH of 7.50, pCO2 of 30 and a pO2 of 56 on 50% FIO2, on assist control mode and rate of 16. I had a lengthy discussion with the entire family and had discussed advanced directives. The patient's family has mentioned that he never wanted to be on a life support. They want to continue with comfort care. He is tachypneic, tachycardic and is overbreathing the ventilator. PAST MEDICAL HISTORY: History of end-stage liver disease, history of ascites, hep C and alcoholism. SOCIAL HISTORY: Heavy history of alcoholism. REVIEW OF SYSTEMS: Unable to obtain from the patient. ALLERGIES: None. CURRENT MEDICATIONS: Reviewed as listed in the [facility]. PHYSICAL EXAMINATION: GENERAL: He is tachypneic while on the ventilator. VITAL SIGNS: Blood pressure is 96 systolic. Pulses in the 130s, pulse ox is 90% on 50% FiO2. HEENT: Sclerae is mildly icteric. NECK: Supple. LUNGS: With few rhonchi bilaterally. CARDIOVASCULAR: Tachycardia. ABDOMEN: Soft, distended. EXTREMITIES: With trace pitting edema. LABORATORY DATA: Reviewed. His chemistries with a BUN of 26, creatinine 1.2. Lactic acid is 5.1. Toxicology screen is negative. Urine has many hyaline cast. INR 2.0. White cell count 18.3, hemoglobin 9.1 and platelets are 162. IMPRESSION: 1. Acute respiratory failure secondary to acute toxic encephalopathy and possible sepsis. 2. End-stage liver disease in a patient with history of severe alcoholism, hep C and ascites. He has been followed at . Now comes in with acute toxic encephalopathy and hepatic failure. 3. Pneumonia with possible early sepsis. 4. Lactic acidosis could be type 1 or type 2 (related to alcoholic liver disease.) 5. Coagulopathy. 6. Decreasing urine output. RECOMMENDATIONS: Discussed with the entire family. They want to respect the patient's wishes and they have all decided to continue with comfort care. I have discussed with the patient's nurse and RT. At this time, I would like to sedate him and place him on narcotics to improve his air hunger and make sure he is pain free. His tachycardia may be a manifestation of pain. Once he is comfortable, then I will proceed with terminal extubation. The patient's family is agreeable with the present plan and discussed with Dr. Young .CCT 40 MIN BRICE CARABALLO MD DR: RYANN/alexander JOB#: [id number] / [id number] ROSA
--- NOTE | 2016-09-18 11:37 | PDOC ---
PROGRESS NOTES Chief Complaint Chief Complaint Severe Hepatic Encephalopathy Resp Railure ETOH Hep-C Cirrhosis History of Present Illness History of Present Illness Pt intubated Family wants comfort care DW RN and Dr Bloom Vitals Vitals Vital Signs Date Time Temp Pulse Resp B/P Pulse Ox O2 Delivery O2 Flow Rate FiO2 09/18/16 11:05 17 Ventilator 09/18/16 08:00 92 09/18/16 06:00 130 126/89 09/18/16 03:00 97.7 97.7 Physical Exam General: Other (Unresponsisve) Heart: Regular rate Lungs: Crackles Abdomen: Other (Ascitese noted) Extremities: No clubbing Skin: Other (+ petechiae) Labs LABS Laboratory Tests Test 09/17/16 12:30 09/17/16 16:00 09/17/16 16:50 09/17/16 20:00 White Blood Count 10.9x10^3/uL (4.0-11.0) Red Blood Count 2.86x10^6/uL (4.30-5.70) Hemoglobin 9.7g/dL (13.0-17.5) Hematocrit 28.3% (39.0-53.0) Mean Corpuscular Volume 99fL (79-100) Mean Corpuscular Hemoglobin 34pg (25-35) Mean Corpuscular Hemoglobin Concent 34g/dL (31-37) Red Cell Distribution Width 14.5% (11.5-14.5) Platelet Count 152x10^3/uL (140-400) Neutrophils (%) (Auto) 84% (31-73) Lymphocytes (%) (Auto) 11% (24-48) Monocytes (%) (Auto) 5% (0-9) Eosinophils (%) (Auto) 0% (0-3) Basophils (%) (Auto) 0% (0-3) Neutrophils # (Auto) 9.2x10^3uL (1.8-7.7) Lymphocytes # (Auto) 1.2x10^3/uL (1.0-4.8) Monocytes # (Auto) 0.6x10^3/uL (0.0-1.1) Eosinophils # (Auto) 0.0x10^3/uL (0.0-0.7) Basophils # (Auto) 0.0x10^3/uL (0.0-0.2) Prothrombin Time 21.2SEC (11.7-14.0) Prothromb Time International Ratio 2.0 (0.8-1.1) Activated Partial Thromboplast Time 42SEC (24-38) Urine Collection Type U cath Urine Color Yellow Urine Clarity Clear Urine pH 7.0 Urine Specific [place] 1.015 Urine Protein Negativemg/dL (NEG-TRACE) Urine Glucose (UA) Negativemg/dL (NEG) Urine Ketones (Stick) Negativemg/dL (NEG) Urine Blood Small (NEG) Urine Nitrite Negative (NEG) Urine Bilirubin Negative (NEG) Urine Urobilinogen Dipstick 1.0mg/dL (0.2 mg/dL) Urine Leukocyte Esterase Negative (NEG) Urine RBC 11-20/HPF (0-2) Urine WBC 0/HPF (0-4) Urine Transitional Epithelial Cells Few/LPF Urine Bacteria 0/HPF (0-FEW) Urine Hyaline Casts Many/HPF Urine Mucus Slight/LPF Sodium Level 135mmol/L (136-145) Potassium Level 4.1mmol/L (3.5-5.1) Chloride Level 98mmol/L (98-107) Carbon Dioxide Level 25mmol/L (21-32) Anion Gap 12 (6-14) Blood Urea Nitrogen 23mg/dL (8-26) Creatinine 1.3mg/dL (0.7-1.3) Estimated GFR (Cockcroft-Gault) 56.9 BUN/Creatinine Ratio 18 (6-20) Glucose Level 126mg/dL (70-99) Lactic Acid Level 4.6mmol/L (0.4-2.0) 5.1mmol/L (0.4-2.0) 3.8mmol/L (0.4-2.0) Calcium Level 8.6mg/dL (8.5-10.1) Phosphorus Level 3.7mg/dL (2.6-4.7) Magnesium Level 2.0mg/dL (1.8-2.4) Total Bilirubin 3.8mg/dL (0.2-1.0) Aspartate Amino Transf (AST/SGOT) 73U/L (15-37) Alanine Aminotransferase (ALT/SGPT) 31U/L (16-63) Alkaline Phosphatase 157U/L (46-116) Ammonia 249mcmol/L (11-34) Troponin I Quantitative < 0.017ng/mL (0.000-0.055) QM-Bqo-E-Type Natriuretic Peptide 93pg/mL (0-124) Total Protein 7.9g/dL (6.4-8.2) Albumin 2.3g/dL (3.4-5.0) Albumin/Globulin Ratio 0.4 (1.0-1.7) Urine Opiates Screen Neg (NEG) Urine Methadone Screen Neg (NEG) Urine Barbiturates Neg (NEG) Urine Phencyclidine Screen Neg (NEG) Urine Amphetamine/Methamphetamine Neg (NEG) Urine Benzodiazepines Screen Neg (NEG) Urine Cocaine Screen Neg (NEG) Urine Cannabinoids Screen Neg (NEG) Urine Ethyl Alcohol Neg (NEG) O2 Saturation 100% (92-99) Arterial Blood pH 7.49 (7.35-7.45) Arterial Blood pCO2 at Patient Temp 31mmHg (35-46) Arterial Blood pO2 at Patient Temp 350mmHg (75-108) Arterial Blood HCO3 23mmol/L (21-28) Arterial Blood Base Excess 0mmol/L (-3-3) FiO2 100 Nasal Screen MRSA (PCR) Negative (Negative) Test 09/18/16 05:00 09/18/16 08:00 White Blood Count 18.3x10^3/uL (4.0-11.0) Red Blood Count 2.72x10^6/uL (4.30-5.70) Hemoglobin 9.1g/dL (13.0-17.5) Hematocrit 27.6% (39.0-53.0) Mean Corpuscular Volume 102fL (79-100) Mean Corpuscular Hemoglobin 34pg (25-35) Mean Corpuscular Hemoglobin Concent 33g/dL (31-37) Red Cell Distribution Width 14.6% (11.5-14.5) Platelet Count 162x10^3/uL (140-400) Neutrophils (%) (Auto) 89% (31-73) Lymphocytes (%) (Auto) 6% (24-48) Monocytes (%) (Auto) 4% (0-9) Eosinophils (%) (Auto) 0% (0-3) Basophils (%) (Auto) 1% (0-3) Neutrophils # (Auto) 16.4x10^3uL (1.8-7.7) Lymphocytes # (Auto) 1.1x10^3/uL (1.0-4.8) Monocytes # (Auto) 0.6x10^3/uL (0.0-1.1) Eosinophils # (Auto) 0.1x10^3/uL (0.0-0.7) Basophils # (Auto) 0.1x10^3/uL (0.0-0.2) Segmented Neutrophils % 95% (35-66) Lymphocytes % 2% (24-48) Monocytes % 3% (0-10) Platelet Estimate Adequate (ADEQUATE) Sodium Level 138mmol/L (136-145) Potassium Level 3.8mmol/L (3.5-5.1) Chloride Level 103mmol/L (98-107) Carbon Dioxide Level 23mmol/L (21-32) Anion Gap 12 (6-14) Blood Urea Nitrogen 26mg/dL (8-26) Creatinine 1.2mg/dL (0.7-1.3) Estimated GFR (Cockcroft-Gault) 62.4 Glucose Level 113mg/dL (70-99) Calcium Level 8.7mg/dL (8.5-10.1) O2 Saturation 88% (92-99) Arterial Blood pH 7.50 (7.35-7.45) Arterial Blood pCO2 at Patient Temp 30mmHg (35-46) Arterial Blood pO2 at Patient Temp 56mmHg (75-108) Arterial Blood HCO3 23mmol/L (21-28) Arterial Blood Base Excess 0mmol/L (-3-3) FiO2 50 Review of Systems Review of Systems unobtainable Assessment and Plan Assessmemt and Plan Problems Medical Problems: (1) End stage liver disease Status: Acute (2) Hyperammonemia Status: Acute (3) Mental status change Status: Acute Severe Hepatic Encephalopathy Resp Railure ETOH Hep-C Cirrhosis Plan Comfort care Extubate Prognosis terminal Problems: Comment Review of Relevant I have reviewed the following items izabella (where applicable) has been applied. Labs Laboratory Tests Test 09/17/16 12:30 09/17/16 16:00 09/17/16 16:50 09/17/16 20:00 White Blood Count 10.9x10^3/uL (4.0-11.0) Red Blood Count 2.86x10^6/uL (4.30-5.70) Hemoglobin 9.7g/dL (13.0-17.5) Hematocrit 28.3% (39.0-53.0) Mean Corpuscular Volume 99fL (79-100) Mean Corpuscular Hemoglobin 34pg (25-35) Mean Corpuscular Hemoglobin Concent 34g/dL (31-37) Red Cell Distribution Width 14.5% (11.5-14.5) Platelet Count 152x10^3/uL (140-400) Neutrophils (%) (Auto) 84% (31-73) Lymphocytes (%) (Auto) 11% (24-48) Monocytes (%) (Auto) 5% (0-9) Eosinophils (%) (Auto) 0% (0-3) Basophils (%) (Auto) 0% (0-3) Neutrophils # (Auto) 9.2x10^3uL (1.8-7.7) Lymphocytes # (Auto) 1.2x10^3/uL (1.0-4.8) Monocytes # (Auto) 0.6x10^3/uL (0.0-1.1) Eosinophils # (Auto) 0.0x10^3/uL (0.0-0.7) Basophils # (Auto) 0.0x10^3/uL (0.0-0.2) Prothrombin Time 21.2SEC (11.7-14.0) Prothromb Time International Ratio 2.0 (0.8-1.1) Activated Partial Thromboplast Time 42SEC (24-38) Urine Collection Type U cath Urine Color Yellow Urine Clarity Clear Urine pH 7.0 Urine Specific [place] 1.015 Urine Protein Negativemg/dL (NEG-TRACE) Urine Glucose (UA) Negativemg/dL (NEG) Urine Ketones (Stick) Negativemg/dL (NEG) Urine Blood Small (NEG) Urine Nitrite Negative (NEG) Urine Bilirubin Negative (NEG) Urine Urobilinogen Dipstick 1.0mg/dL (0.2 mg/dL) Urine Leukocyte Esterase Negative (NEG) Urine RBC 11-20/HPF (0-2) Urine WBC 0/HPF (0-4) Urine Transitional Epithelial Cells Few/LPF Urine Bacteria 0/HPF (0-FEW) Urine Hyaline Casts Many/HPF Urine Mucus Slight/LPF Sodium Level 135mmol/L (136-145) Potassium Level 4.1mmol/L (3.5-5.1) Chloride Level 98mmol/L (98-107) Carbon Dioxide Level 25mmol/L (21-32) Anion Gap 12 (6-14) Blood Urea Nitrogen 23mg/dL (8-26) Creatinine 1.3mg/dL (0.7-1.3) Estimated GFR (Cockcroft-Gault) 56.9 BUN/Creatinine Ratio 18 (6-20) Glucose Level 126mg/dL (70-99) Lactic Acid Level 4.6mmol/L (0.4-2.0) 5.1mmol/L (0.4-2.0) 3.8mmol/L (0.4-2.0) Calcium Level 8.6mg/dL (8.5-10.1) Phosphorus Level 3.7mg/dL (2.6-4.7) Magnesium Level 2.0mg/dL (1.8-2.4) Total Bilirubin 3.8mg/dL (0.2-1.0) Aspartate Amino Transf (AST/SGOT) 73U/L (15-37) Alanine Aminotransferase (ALT/SGPT) 31U/L (16-63) Alkaline Phosphatase 157U/L (46-116) Ammonia 249mcmol/L (11-34) Troponin I Quantitative < 0.017ng/mL (0.000-0.055) EC-Dpz-U-Type Natriuretic Peptide 93pg/mL (0-124) Total Protein 7.9g/dL (6.4-8.2) Albumin 2.3g/dL (3.4-5.0) Albumin/Globulin Ratio 0.4 (1.0-1.7) Urine Opiates Screen Neg (NEG) Urine Methadone Screen Neg (NEG) Urine Barbiturates Neg (NEG) Urine Phencyclidine Screen Neg (NEG) Urine Amphetamine/Methamphetamine Neg (NEG) Urine Benzodiazepines Screen Neg (NEG) Urine Cocaine Screen Neg (NEG) Urine Cannabinoids Screen Neg (NEG) Urine Ethyl Alcohol Neg (NEG) O2 Saturation 100% (92-99) Arterial Blood pH 7.49 (7.35-7.45) Arterial Blood pCO2 at Patient Temp 31mmHg (35-46) Arterial Blood pO2 at Patient Temp 350mmHg (75-108) Arterial Blood HCO3 23mmol/L (21-28) Arterial Blood Base Excess 0mmol/L (-3-3) FiO2 100 Nasal Screen MRSA (PCR) Negative (Negative) Test 09/18/16 05:00 09/18/16 08:00 White Blood Count 18.3x10^3/uL (4.0-11.0) Red Blood Count 2.72x10^6/uL (4.30-5.70) Hemoglobin 9.1g/dL (13.0-17.5) Hematocrit 27.6% (39.0-53.0) Mean Corpuscular Volume 102fL (79-100) Mean Corpuscular Hemoglobin 34pg (25-35) Mean Corpuscular Hemoglobin Concent 33g/dL (31-37) Red Cell Distribution Width 14.6% (11.5-14.5) Platelet Count 162x10^3/uL (140-400) Neutrophils (%) (Auto) 89% (31-73) Lymphocytes (%) (Auto) 6% (24-48) Monocytes (%) (Auto) 4% (0-9) Eosinophils (%) (Auto) 0% (0-3) Basophils (%) (Auto) 1% (0-3) Neutrophils # (Auto) 16.4x10^3uL (1.8-7.7) Lymphocytes # (Auto) 1.1x10^3/uL (1.0-4.8) Monocytes # (Auto) 0.6x10^3/uL (0.0-1.1) Eosinophils # (Auto) 0.1x10^3/uL (0.0-0.7) Basophils # (Auto) 0.1x10^3/uL (0.0-0.2) Segmented Neutrophils % 95% (35-66) Lymphocytes % 2% (24-48) Monocytes % 3% (0-10) Platelet Estimate Adequate (ADEQUATE) Sodium Level 138mmol/L (136-145) Potassium Level 3.8mmol/L (3.5-5.1) Chloride Level 103mmol/L (98-107) Carbon Dioxide Level 23mmol/L (21-32) Anion Gap 12 (6-14) Blood Urea Nitrogen 26mg/dL (8-26) Creatinine 1.2mg/dL (0.7-1.3) Estimated GFR (Cockcroft-Gault) 62.4 Glucose Level 113mg/dL (70-99) Calcium Level 8.7mg/dL (8.5-10.1) O2 Saturation 88% (92-99) Arterial Blood pH 7.50 (7.35-7.45) Arterial Blood pCO2 at Patient Temp 30mmHg (35-46) Arterial Blood pO2 at Patient Temp 56mmHg (75-108) Arterial Blood HCO3 23mmol/L (21-28) Arterial Blood Base Excess 0mmol/L (-3-3) FiO2 50 Laboratory Tests Test 09/17/16 12:30 09/17/16 16:00 09/17/16 16:50 09/17/16 20:00 White Blood Count 10.9x10^3/uL (4.0-11.0) Red Blood Count 2.86x10^6/uL (4.30-5.70) Hemoglobin 9.7g/dL (13.0-17.5) Hematocrit 28.3% (39.0-53.0) Mean Corpuscular Volume 99fL (79-100) Mean Corpuscular Hemoglobin 34pg (25-35) Mean Corpuscular Hemoglobin Concent 34g/dL (31-37) Red Cell Distribution Width 14.5% (11.5-14.5) Platelet Count 152x10^3/uL (140-400) Neutrophils (%) (Auto) 84% (31-73) Lymphocytes (%) (Auto) 11% (24-48) Monocytes (%) (Auto) 5% (0-9) Eosinophils (%) (Auto) 0% (0-3) Basophils (%) (Auto) 0% (0-3) Neutrophils # (Auto) 9.2x10^3uL (1.8-7.7) Lymphocytes # (Auto) 1.2x10^3/uL (1.0-4.8) Monocytes # (Auto) 0.6x10^3/uL (0.0-1.1) Eosinophils # (Auto) 0.0x10^3/uL (0.0-0.7) Basophils # (Auto) 0.0x10^3/uL (0.0-0.2) Prothrombin Time 21.2SEC (11.7-14.0) Prothromb Time International Ratio 2.0 (0.8-1.1) Activated Partial Thromboplast Time 42SEC (24-38) Urine Collection Type U cath Urine Color Yellow Urine Clarity Clear Urine pH 7.0 Urine Specific [place] 1.015 Urine Protein Negativemg/dL (NEG-TRACE) Urine Glucose (UA) Negativemg/dL (NEG) Urine Ketones (Stick) Negativemg/dL (NEG) Urine Blood Small (NEG) Urine Nitrite Negative (NEG) Urine Bilirubin Negative (NEG) Urine Urobilinogen Dipstick 1.0mg/dL (0.2 mg/dL) Urine Leukocyte Esterase Negative (NEG) Urine RBC 11-20/HPF (0-2) Urine WBC 0/HPF (0-4) Urine Transitional Epithelial Cells Few/LPF Urine Bacteria 0/HPF (0-FEW) Urine Hyaline Casts Many/HPF Urine Mucus Slight/LPF Sodium Level 135mmol/L (136-145) Potassium Level 4.1mmol/L (3.5-5.1) Chloride Level 98mmol/L (98-107) Carbon Dioxide Level 25mmol/L (21-32) Anion Gap 12 (6-14) Blood Urea Nitrogen 23mg/dL (8-26) Creatinine 1.3mg/dL (0.7-1.3) Estimated GFR (Cockcroft-Gault) 56.9 BUN/Creatinine Ratio 18 (6-20) Glucose Level 126mg/dL (70-99) Lactic Acid Level 4.6mmol/L (0.4-2.0) 5.1mmol/L (0.4-2.0) 3.8mmol/L (0.4-2.0) Calcium Level 8.6mg/dL (8.5-10.1) Phosphorus Level 3.7mg/dL (2.6-4.7) Magnesium Level 2.0mg/dL (1.8-2.4) Total Bilirubin 3.8mg/dL (0.2-1.0) Aspartate Amino Transf (AST/SGOT) 73U/L (15-37) Alanine Aminotransferase (ALT/SGPT) 31U/L (16-63) Alkaline Phosphatase 157U/L (46-116) Ammonia 249mcmol/L (11-34) Troponin I Quantitative < 0.017ng/mL (0.000-0.055) EY-Vvb-M-Type Natriuretic Peptide 93pg/mL (0-124) Total Protein 7.9g/dL (6.4-8.2) Albumin 2.3g/dL (3.4-5.0) Albumin/Globulin Ratio 0.4 (1.0-1.7) Urine Opiates Screen Neg (NEG) Urine Methadone Screen Neg (NEG) Urine Barbiturates Neg (NEG) Urine Phencyclidine Screen Neg (NEG) Urine Amphetamine/Methamphetamine Neg (NEG) Urine Benzodiazepines Screen Neg (NEG) Urine Cocaine Screen Neg (NEG) Urine Cannabinoids Screen Neg (NEG) Urine Ethyl Alcohol Neg (NEG) O2 Saturation 100% (92-99) Arterial Blood pH 7.49 (7.35-7.45) Arterial Blood pCO2 at Patient Temp 31mmHg (35-46) Arterial Blood pO2 at Patient Temp 350mmHg (75-108) Arterial Blood HCO3 23mmol/L (21-28) Arterial Blood Base Excess 0mmol/L (-3-3) FiO2 100 Nasal Screen MRSA (PCR) Negative (Negative) Test 09/18/16 05:00 09/18/16 08:00 White Blood Count 18.3x10^3/uL (4.0-11.0) Red Blood Count 2.72x10^6/uL (4.30-5.70) Hemoglobin 9.1g/dL (13.0-17.5) Hematocrit 27.6% (39.0-53.0) Mean Corpuscular Volume 102fL (79-100) Mean Corpuscular Hemoglobin 34pg (25-35) Mean Corpuscular Hemoglobin Concent 33g/dL (31-37) Red Cell Distribution Width 14.6% (11.5-14.5) Platelet Count 162x10^3/uL (140-400) Neutrophils (%) (Auto) 89% (31-73) Lymphocytes (%) (Auto) 6% (24-48) Monocytes (%) (Auto) 4% (0-9) Eosinophils (%) (Auto) 0% (0-3) Basophils (%) (Auto) 1% (0-3) Neutrophils # (Auto) 16.4x10^3uL (1.8-7.7) Lymphocytes # (Auto) 1.1x10^3/uL (1.0-4.8) Monocytes # (Auto) 0.6x10^3/uL (0.0-1.1) Eosinophils # (Auto) 0.1x10^3/uL (0.0-0.7) Basophils # (Auto) 0.1x10^3/uL (0.0-0.2) Segmented Neutrophils % 95% (35-66) Lymphocytes % 2% (24-48) Monocytes % 3% (0-10) Platelet Estimate Adequate (ADEQUATE) Sodium Level 138mmol/L (136-145) Potassium Level 3.8mmol/L (3.5-5.1) Chloride Level 103mmol/L (98-107) Carbon Dioxide Level 23mmol/L (21-32) Anion Gap 12 (6-14) Blood Urea Nitrogen 26mg/dL (8-26) Creatinine 1.2mg/dL (0.7-1.3) Estimated GFR (Cockcroft-Gault) 62.4 Glucose Level 113mg/dL (70-99) Calcium Level 8.7mg/dL (8.5-10.1) O2 Saturation 88% (92-99) Arterial Blood pH 7.50 (7.35-7.45) Arterial Blood pCO2 at Patient Temp 30mmHg (35-46) Arterial Blood pO2 at Patient Temp 56mmHg (75-108) Arterial Blood HCO3 23mmol/L (21-28) Arterial Blood Base Excess 0mmol/L (-3-3) FiO2 50 Medications Current Medications Sodium Chloride 1,000 ml @ 100 mls/hr 1X ONCE IV Last administered on 13:30; Start 09/17/16 at 13:30; Stop 09/17/16 at 23:29; Status DC Propofol (Diprivan) 100 ml @ 0 mls/hr CONT PRN IV PER PROTOCOL Last administered on 09/18/16 03:08; Start 09/17/16 at 14:15 Fentanyl Citrate (Fentanyl 2ml Vial) 25 mcg PRN Q1HR PRN IV COMM; Start at 14:15 Fentanyl Citrate (Fentanyl 2ml Vial) 50 mcg PRN Q1HR PRN IV COMM; Start at 14:15 Chlorhexidine Gluconate (Peridex) 15 ml BID MM Last administered on 09/17/16 20:58; Start 09/17/16 at 21:00 Morphine Sulfate 2 mg PRN Q1HR PRN IV COMM Last administered on 09/18/16 04:24 ; Start 09/17/16 at 14:15 Morphine Sulfate 4 mg PRN Q1HR PRN IV COMM; Start 09/17/16 at 14:15 Lactulose 30 gm Q2HR NG Last administered on 09/18/16 08:38; Start 09/17/16 at 16:00 Etomidate (Amidate) 20 mg STK-MED ONCE IV ; Start 09/17/16 at 17:27; Stop at 17:28; Status DC Succinylcholine Chloride 200 mg 200 mg STK-MED ONCE .ROUTE ; Start 09/17/16 at 17:27; Stop 09/17/16 at 17:28; Status DC Sodium Chloride 1,000 ml @ 1,000 mls/hr 1X ONCE IV Last administered on 19:06; Start 09/17/16 at 18:00; Stop 09/17/16 at 18:59; Status DC Sodium Chloride 1,000 ml @ 1,000 mls/hr 1X ONCE IV Last administered on 19:21; Start 09/17/16 at 18:15; Stop 09/17/16 at 19:14; Status DC Sodium Chloride (Iv Sodium Chloride 0.9% 500ml Bag) 500 ml @ 500 mls/hr 1X ONCE IV Last administered on 09/17/16 21:45; Start 09/17/16 at 18:15; Stop at 19:14; Status DC Labetalol HCl (Normodyne) 20 mg PRN Q2HR PRN IVP HYPERTENSION, SEE COMMENTS; Start 09/18/16 at 04:45 Lorazepam (Ativan) 0.5 mg PRN Q6HRS PRN IV ANXIETY / AGITATION Last administered on 09/18/16 11:12; Start 09/18/16 at 04:45 Fentanyl Citrate 50 mcg 50 mcg 1X ONCE IV ; Start 09/18/16 at 10:45; Stop 09/18 at 10:46; Status DC Fentanyl Citrate (Fentanyl 600 Mcg/30 ml [employer]) 30 ml @ 0 mls/hr CONT PRN PRN IV PROTOCOL Last administered on 09/18/16t 11:05; Start 09/18/16 at 10:45 Lorazepam (Ativan) 1 mg PRN Q15MIN PRN IV ANXIETY / AGITATION; Start 09/18/16 at 11:30 Vitals/I & O Vital Sign - Last 24 Hours 09/17/16 09/17/16 09/17/16 09/17/16 12:10 13:10 14:18 14:30 Temp 97.4 97.4 Pulse 113 114 118 120 Resp 14 12 12 18 B/P 144/74 147/68 144/72 182/87 Pulse Ox 96 94 100 99 O2 Delivery Room Air Room Air Bag Valve Mask Ventilator 09/17/16 09/17/16 09/17/16 09/17/16 14:35 15:00 15:20 15:45 Temp 97.6 97.6 Pulse 116 113 118 Resp 18 18 24 B/P 164/77 146/77 139/77 Pulse Ox 100 100 99 100 O2 Delivery Ventilator Ventilator Ventilator Ventilator 09/17/16 09/17/16 09/17/16 09/17/16 16:00 16:15 16:30 17:00 Pulse 114 128 120 118 Resp 20 18 22 24 B/P 118/66 162/87 129/79 133/71 Pulse Ox 98 97 98 97 O2 Delivery Ventilator Ventilator Ventilator Ventilator 09/17/16 09/17/16 09/17/16 09/17/16 17:29 17:30 18:00 18:23 Pulse 122 116 Resp 18 19 B/P 146/79 119/68 Pulse Ox 97 98 98 O2 Delivery Mechanical Ventilator Ventilator Ventilator Ventilator 09/17/16 09/17/16 09/17/16 09/17/16 19:00 19:00 19:29 20:00 Temp 97.6 97.6 Pulse 120 112 118 Resp 20 17 17 B/P 124/74 117/64 154/80 Pulse Ox 98 98 98 98 O2 Delivery Ventilator Ventilator Ventilator Ventilator 09/17/16 09/17/16 09/17/16 09/17/16 20:00 21:00 21:25 22:00 Pulse 115 112 Resp 18 18 B/P 134/75 140/65 Pulse Ox 98 97 96 O2 Delivery Mechanical Ventilator Ventilator Ventilator Ventilator 09/17/16 09/17/16 09/17/16 09/18/16 23:00 23:43 23:59 00:00 Temp 97.6 97.6 Pulse 109 110 Resp 18 18 B/P 114/65 124/66 Pulse Ox 97 97 98 O2 Delivery Ventilator Ventilator Mechanical Ventilator Ventilator 09/18/16 09/18/16 09/18/16 09/18/16 01:00 01:10 02:00 03:00 Temp 97.7 97.7 Pulse 112 115 116 Resp 17 18 21 B/P 123/66 121/70 116/67 Pulse Ox 97 97 96 97 O2 Delivery Ventilator Ventilator Ventilator Ventilator 09/18/16 09/18/16 09/18/16 09/18/16 03:29 04:00 04:00 04:13 Pulse 144 Resp 21 18 B/P 122/62 Pulse Ox 96 94 96 O2 Delivery Ventilator Ventilator Mechanical Ventilator Ventilator 09/18/16 09/18/16 09/18/16 09/18/16 04:24 04:43 05:00 05:10 Pulse 130 Resp 18 17 19 B/P 126/89 Pulse Ox 96 96 96 96 O2 Delivery Ventilator Ventilator 09/18/16 09/18/16 09/18/16 09/18/16 06:00 06:00 08:00 11:05 Pulse 134 130 Resp 17 B/P 95/62 126/89 Pulse Ox 93 96 92 O2 Delivery Ventilator Ventilator Ventilator Ventilator Intake and Output 09/17/16 09/17/16 09/18/16 15:00 23:00 07:00 Intake Total 2740 ml 300 ml Output Total 545 ml 395 ml Balance 2195 ml -95 ml GERALDNIAL K III DO Sep 18, 2016 11:37
[2016-09-18] MEDS ORDERED: SCOPOLAMINE 1.5MG PATCH. TD SCH (13:00)
--- NOTE | 2016-09-18 17:48 | PDOC ---
GI PROGRESS NOTES Date Date/Time DATE: 09/18/16 TIME: 17:46 Subjective Subjective end stage cirrhosis extubated today and placed on comfort care Objective Vitals Vital Signs Date Time Temp Pulse Resp B/P Pulse Ox O2 Delivery O2 Flow Rate FiO2 09/18/16 17:09 97.5 128 12 83/48 68 Room Air 97.5 09/18/16 15:38 22 Room Air 09/18/16 12:22 Nasal Cannula 4.0 09/18/16 12:00 118 20 91 Nasal Cannula 4.0 09/18/16 11:05 17 Ventilator 09/18/16 11:00 126 20 113/62 89 Ventilator 09/18/16 10:00 132 22 117/65 90 Ventilator 09/18/16 09:00 130 17 107/56 90 Ventilator 09/18/16 08:00 138 17 93/57 90 Ventilator 09/18/16 08:00 92 Ventilator 09/18/16 07:00 99.1 136 17 110/59 91 Ventilator 99.1 09/18/16 06:00 130 19 126/89 96 Ventilator 09/18/16 06:00 134 22 95/62 93 Ventilator 09/18/16 05:10 96 Ventilator 09/18/16 05:00 130 19 126/89 96 Ventilator 09/18/16 04:43 17 96 09/18/16 04:24 18 96 09/18/16 04:13 18 96 Ventilator 09/18/16 04:00 Mechanical Ventilator 09/18/16 04:00 144 21 122/62 94 Ventilator 09/18/16 03:29 96 Ventilator 09/18/16 03:00 97.7 116 21 116/67 97 Ventilator 97.7 09/18/16 02:00 115 18 121/70 96 Ventilator 09/18/16 01:10 97 Ventilator 09/18/16 01:00 112 17 123/66 97 Ventilator 09/18/16 00:00 110 18 124/66 98 Ventilator 09/17/16 23:59 Mechanical Ventilator 09/17/16 23:43 97 Ventilator 09/17/16 23:00 97.6 109 18 114/65 97 Ventilator 97.6 09/17/16 22:00 112 18 140/65 96 Ventilator 09/17/16 21:25 97 Ventilator 09/17/16 21:00 115 18 134/75 98 Ventilator 09/17/16 20:00 Mechanical Ventilator 09/17/16 20:00 118 17 154/80 98 Ventilator 09/17/16 19:29 98 Ventilator 09/17/16 19:00 97.6 112 17 117/64 98 Ventilator 97.6 09/17/16 19:00 120 20 124/74 98 Ventilator 09/17/16 18:23 98 Ventilator 09/17/16 18:00 116 19 119/68 98 Ventilator Labs Labs Laboratory Tests Test 09/17/16 20:00 09/18/16 05:00 09/18/16 08:00 Lactic Acid Level 3.8mmol/L (0.4-2.0) White Blood Count 18.3x10^3/uL (4.0-11.0) Red Blood Count 2.72x10^6/uL (4.30-5.70) Hemoglobin 9.1g/dL (13.0-17.5) Hematocrit 27.6% (39.0-53.0) Mean Corpuscular Volume 102fL (79-100) Mean Corpuscular Hemoglobin 34pg (25-35) Mean Corpuscular Hemoglobin Concent 33g/dL (31-37) Red Cell Distribution Width 14.6% (11.5-14.5) Platelet Count 162x10^3/uL (140-400) Neutrophils (%) (Auto) 89% (31-73) Lymphocytes (%) (Auto) 6% (24-48) Monocytes (%) (Auto) 4% (0-9) Eosinophils (%) (Auto) 0% (0-3) Basophils (%) (Auto) 1% (0-3) Neutrophils # (Auto) 16.4x10^3uL (1.8-7.7) Lymphocytes # (Auto) 1.1x10^3/uL (1.0-4.8) Monocytes # (Auto) 0.6x10^3/uL (0.0-1.1) Eosinophils # (Auto) 0.1x10^3/uL (0.0-0.7) Basophils # (Auto) 0.1x10^3/uL (0.0-0.2) Segmented Neutrophils % 95% (35-66) Lymphocytes % 2% (24-48) Monocytes % 3% (0-10) Platelet Estimate Adequate (ADEQUATE) Sodium Level 138mmol/L (136-145) Potassium Level 3.8mmol/L (3.5-5.1) Chloride Level 103mmol/L (98-107) Carbon Dioxide Level 23mmol/L (21-32) Anion Gap 12 (6-14) Blood Urea Nitrogen 26mg/dL (8-26) Creatinine 1.2mg/dL (0.7-1.3) Estimated GFR (Cockcroft-Gault) 62.4 Glucose Level 113mg/dL (70-99) Calcium Level 8.7mg/dL (8.5-10.1) O2 Saturation 88% (92-99) Arterial Blood pH 7.50 (7.35-7.45) Arterial Blood pCO2 at Patient Temp 30mmHg (35-46) Arterial Blood pO2 at Patient Temp 56mmHg (75-108) Arterial Blood HCO3 23mmol/L (21-28) Arterial Blood Base Excess 0mmol/L (-3-3) FiO2 50 Physical Exam Physical Exam obtunded jaundiced rhonchi and upper airway sounds abd- distended Assessment Assessment End stage liver disease extubated and moved upstairs - comfort care discussed with family- answered questions Problems: KHANG AVILES MD Sep 18, 2016 17:48
== END 2016-09-18 21:56 | disposition expired | DRG 208 ==
LOC: ER 11:57 → 1 WEST ICU 13:23 → 6 SOUTH 09-18 17:00
PROVIDERS: ADMIT Internal Medicine Hematology & Oncology; ATTEND Internal Medicine Hematology & Oncology
PROC: 5A1935Z Respiratory Ventilation, Less than 24 Consecutive Hours (ICD-10-PCS; principal; 2016-09-17)
PROC: 0BH17EZ Insertion of Endotracheal Airway into Trachea, Via Natural or Artificial Opening (ICD-10-PCS; 2016-09-17)
DX: J96.00 Acute respiratory failure, unspecified whether with hypoxia or hypercapnia (principal); J18.9 Pneumonia, unspecified organism; G92 Toxic encephalopathy; B19.21 Unspecified viral hepatitis C with hepatic coma; D68.9 Coagulation defect, unspecified; E87.2 Acidosis; K72.90 Hepatic failure, unspecified without coma; K70.11 Alcoholic hepatitis with ascites; K70.31 Alcoholic cirrhosis of liver with ascites; Z51.5 Encounter for palliative care; Z66 Do not resuscitate
CPT/HCPCS: 31500; 36415; 36600; 51702; 70450; 71010; 74000; 80048; 80053; 81001; 82140; 82805; 83605; 83735; 83880; 84100; 84484; 85007; 85027; 85610; 85730; 87641; 93005; 94002; 94003; 96360; 96361; G0481; J2060; J2270; J2704; J3010; J7030; J7040; 99291-25